=== PATIENT | male | born 1960 | race Hispanic/Latino ===

== ENCOUNTER 2017-12-08 06:34 | Day surgery (SDC) | payer MEDICAID ==
[~2017-12-08] VITALS: Ht 167.6 cm; Wt 78.9 kg
[~2017-12-08 06:34] MED LIST: ASPI-1005 PO; FURO40TA7 PO; LEVO50TA4 PO; METO50TA18 PO; SODIUM CHLORIDE 0.9% 1000ML 1,000 ML IV ONE
[2017-12-08 06:46] VITALS: BP 181/97
[2017-12-08 07:52] VITALS: BP 177/99
[2017-12-08] MEDS ORDERED: PROPOFOL 10 MG/ML 20ML VIAL IV ONE (10:35)
[2017-12-08] MEDS ORDERED: FENTANYL CITRATE PF 50 MCG/1 ML 2ML VIAL ONE (10:38)
[2017-12-08 10:49] VITALS: BP 149/85
== END 2017-12-08 11:35 | disposition home or self-care (01) ==
LOC: DAH 06:34
PROVIDERS: ATTEND Internal Medicine
DX: K29.50 Unspecified chronic gastritis without bleeding (principal); I10 Essential (primary) hypertension; E03.8 Other specified hypothyroidism; Z72.0 Tobacco use; Z79.899 Other long term (current) drug therapy
CPT/HCPCS: 43239; 88305; 88312; A4606; J2704; J3010; J7030

== ENCOUNTER 2018-05-27 20:32 | Observation (INO) | payer MEDICAID ==
[~2018-05-27] VITALS: Ht 175.3 cm; Wt 85.0 kg
[~2018-05-27 20:32] MED LIST changes: +AMLO5TAB7 PO; -ASPI-1005 PO; +CARV12.511 PO; -FURO40TA7 PO; +HYDR-4153 PO; +ISOS60TA4 PO; -LEVO50TA4 PO; -METO50TA18 PO; -SODIUM CHLORIDE 0.9% 1000ML 1,000 ML IV ONE
[2018-05-27] MEDS ORDERED: ASPIRIN 325 MG TABLET ONE (20:54)
[2018-05-27 20:58] LABS: BASOPHILS % (AUTO) 1.5 % (0.0-5.0); EOSINOPHILS % (AUTO) 2.6 % (0.0-8.0); HEMATOCRIT 31.7 % (42-54); LYMPHOCYTES % (AUTO) 20.5 % (21.0-51.0); MEAN CORPUSCULAR HEMOGLOBIN 34.3 pg (27.0-33.0); MEAN CORPUSCULAR HGB CONC 33.9 g/dL (32.0-36.0); MONOCYTES % (AUTO) 7.7 % (3.0-13.0); NEUTROPHILS % (AUTO) 67.7 % (40.0-77.0); PLATELET COUNT (AUTO) 133 K/uL (130-400); RED BLOOD CELL COUNT(AUTO) 3.14 MIL/uL (4.50-6.20); RED CELL DISTRIBUTION WIDTH 16.2 % (11.0-15.5); WHITE BLOOD COUNT (AUTO) 5.7 K/uL (4.8-10.8)
[2018-05-27 21:06] LABS: CREATININE 3.5 mg/dL (0.5-1.5); POTASSIUM 3.8 mmol/L (3.5-5.1)
[2018-05-27 21:10] LABS: ALBUMIN 2.7 g/dL (3.5-5.0); BILIRUBIN,TOTAL 0.4 mg/dL (0.2-1.0); TOTAL PROTEIN, SERUM 7.4 g/dL (6.0-8.3)
[2018-05-27 21:18] LABS: B-TYPE NATRIURETIC PEPTIDE > 5000 pg/mL (0-100)
[2018-05-27 21:51] LABS: APPEARANCE,URINE Cloudy (CLEAR); BILIRUBIN,URINE Negative (NEGATIVE); COLOR,URINE Yellow (YELLOW); GLUCOSE, URINE (UA) TRACE mg/dL (NEGATIVE); KETONES,URINE Negative (NEGATIVE); LEUKOCYTE ESTERASE ,URINE Large (NEGATIVE); NITRATE,URINE Negative (NEGATIVE); OCCULT BLOOD,URINE Small (NEGATIVE); PH,URINE 5.5 (5.0-8.0); PROTEIN,URINE 300 (NEGATIVE); UROBILINOGEN,URINE 0.2 mg/dL (0.2-1.0)
[2018-05-27 22:04] LABS: AMPHET/METH SCREEN,URINE NEGATIVE (NEGATIVE); BARBITURATE SCREEN, URINE NEGATIVE (NEGATIVE); BENZODIAZEPINES SCREEN,URINE NEGATIVE (NEGATIVE); CANNABINOID SCREEN,URINE NEGATIVE (NEGATIVE); COCAINE SCREEN,URINE NEGATIVE (NEGATIVE); OPIATE SCREEN,URINE NEGATIVE (NEGATIVE); PHENCYCLIDINE SCREEN,URINE NEGATIVE (NEGATIVE)
[2018-05-27 22:15] LABS: BACTERIA,URINE Rare /HPF (None Seen); RBC,URINE 0-1 /HPF (0-1); SQUAMOUS EPITHELIAL CELL,UR 0-2 /HPF (0-2); WBC,URINE 26-50 /HPF (0-1)
[2018-05-27 22:19] LABS: CREATINE KINASE, TOTAL 87 U/L (21-232); MYOGLOBIN 125 ng/mL (10-92); TROPONIN I < 0.04 ng/mL (0.00-0.06)
[2018-05-27] MEDS ORDERED: NITROGLYCERIN 1GM/1 INCH PACKET TD ONE (22:39)
[2018-05-27] MEDS ORDERED: PANTOPRAZOLE SODIUM 40 MG TABLET.DR PO ONE (22:51)
[2018-05-27] MEDS ORDERED: SODIUM CHLORIDE 0.9% 50 ML IV ONE (22:51)
[2018-05-27] MEDS ORDERED: CEFTRIAXONE SODIUM 1 GM ONE (22:51)
[2018-05-28 00:16] VITALS: BP 166/101
[2018-05-28] MEDS ORDERED: MORPHINE SULFATE 2 MG/ML 1ML SYG IVP PRN (02:00)
[2018-05-28] MEDS ORDERED: GUAIFENESIN-DM 200/20 MG 10 ML PO PRN (02:00)
[2018-05-28] MEDS ORDERED: ACETAMINOPHEN 325 MG TAB PO PRN ×2 (02:00)
[2018-05-28] MEDS: CEFTRIAXONE SODIUM 1 GM IVP SCH (02:00)
[2018-05-28] MEDS ORDERED: HYDRALAZINE HCL 25 MG TABLET PO PRN (02:00)
[2018-05-28 03:25] VITALS: BP 150/79
[2018-05-28 05:01] LABS: HEMATOCRIT 32.3 % (42-54); MEAN CORPUSCULAR HEMOGLOBIN 33.2 pg (27.0-33.0); MEAN CORPUSCULAR HGB CONC 32.9 g/dL (32.0-36.0); MEAN CORPUSCULAR VOLUME 100.9 fL (79-99); NUCLEATED RED BLOOD CELLS 0.2 % (0.0-0.19); PLATELET COUNT (AUTO) 114 K/uL (130-400); RED CELL DISTRIBUTION WIDTH 16.1 % (11.0-15.5); WHITE BLOOD COUNT (AUTO) 5.6 K/uL (4.8-10.8)
[2018-05-28 05:22] LABS: CARBON DIOXIDE 26 mmol/L (21-32); CHLORIDE 99 mmol/L (101-111); CREATINE KINASE, TOTAL 96 U/L (21-232); CREATININE 3.6 mg/dL (0.5-1.5); GLOMERULAR FILTR. RATE CALC 19 mL/min (>60); GLUCOSE,RANDOM 96 mg/dL (70-105); MYOGLOBIN 133 ng/mL (10-92); POTASSIUM 4.3 mmol/L (3.5-5.1); SODIUM SERUM 134 mmol/L (136-145); TROPONIN I < 0.04 ng/mL (0.00-0.06); UREA NITROGEN, BLOOD 41 mg/dL (7-18)
[2018-05-28] MEDS ORDERED: SODIUM CHLORIDE 0.9% 10 ML VIAL IVP PRN (06:15)
[2018-05-28 07:00] VITALS: BP 152/88
[2018-05-28] MEDS: ASPIRIN 81 MG EC TAB PO SCH (09:46)
[2018-05-28] MEDS: PANTOPRAZOLE SODIUM 40 MG TABLET.DR PO SCH (09:46)
[2018-05-28] MEDS: HEPARIN SODIUM 5000UNIT/ML 1ML VIAL SQ SCH ×2 (09:58→21:18)
[2018-05-28 10:38] LABS: CREATINE KINASE, TOTAL 114 U/L (21-232); MYOGLOBIN 138 ng/mL (10-92); TROPONIN I < 0.04 ng/mL (0.00-0.06)
[2018-05-28 11:00] VITALS: BP 165/91
[2018-05-28 16:00] VITALS: BP 159/81
[2018-05-28] MEDS ORDERED: LEVOFLOXACIN 500 MG/D5W 100 ML 100 ML IV SCH (16:45)
[2018-05-28] MEDS ORDERED: GABAPENTIN 100 MG CAPSULE ONE (18:00)
[2018-05-28] MEDS: OSELTAMIVIR PHOSPHATE 75 MG CAP PO SCH (18:03)
[2018-05-28] MEDS: IPRATROPIUM/ALBUTEROL SULFATE 3 ML SOLUTION IH SCH ×2 (18:28→23:05)
[2018-05-28 20:00] VITALS: BP 180/94
[2018-05-28] MEDS: CARVEDILOL 12.5 MG TABLET PO SCH (21:08)
[2018-05-28] MEDS: HYDRALAZINE HCL 25 MG TABLET PO SCH (21:08)
[2018-05-28] MEDS: GABAPENTIN 100 MG CAPSULE PO SCH (21:09)
[2018-05-29] VITALS: BP 145/64
[2018-05-29] MEDS: CEFTRIAXONE SODIUM 1 GM IVP SCH (01:52)
[2018-05-29 04:00] VITALS: BP 160/76
[2018-05-29 04:34] LABS: HEMATOCRIT 30.2 % (42-54); MEAN CORPUSCULAR HEMOGLOBIN 34.3 pg (27.0-33.0); MEAN CORPUSCULAR HGB CONC 33.7 g/dL (32.0-36.0); PLATELET COUNT (AUTO) 113 K/uL (130-400); RED BLOOD CELL COUNT(AUTO) 2.96 MIL/uL (4.50-6.20); RED CELL DISTRIBUTION WIDTH 16.5 % (11.0-15.5); WHITE BLOOD COUNT (AUTO) 4.4 K/uL (4.8-10.8)
[2018-05-29 04:51] LABS: HEMOGLOBIN A1C 6.2 % (4.0-6.0)
[2018-05-29 05:02] LABS: ALBUMIN 2.6 g/dL (3.5-5.0); BILIRUBIN,DIRECT 0.1 mg/dL (0.0-0.3); BILIRUBIN,TOTAL 0.3 mg/dL (0.2-1.0); CREATININE 4.1 mg/dL (0.5-1.5); MAGNESIUM 2.2 mg/dL (1.80-2.40); PHOSPHORUS 5.6 mg/dL (2.5-4.9); POTASSIUM 4.5 mmol/L (3.5-5.1); THYROID STIMULATING HORMONE 4.82 uIU/mL (0.36-3.74); TOTAL PROTEIN, SERUM 7.1 g/dL (6.0-8.3); URIC ACID 6.4 mg/dL (2.6-7.2)
[2018-05-29] MEDS: IPRATROPIUM/ALBUTEROL SULFATE 3 ML SOLUTION IH SCH ×2 (05:58→10:56)
[2018-05-29 07:00] VITALS: BP 156/78
[2018-05-29] MEDS ORDERED: SODIUM CHLORIDE 0.9% 1000ML 1,000 ML IV PRN (07:30)
[2018-05-29] MEDS ORDERED: ALBUMIN (HUMAN) 25% 100 ML IV PRN (07:30)
[2018-05-29] MEDS ORDERED: 0.9% SODIUM CHLORIDE 250 ML IV BAG IV PRN (07:30)
[2018-05-29] MEDS ORDERED: HEPARIN SODIUM 5000UNIT/ML 1ML VIAL IJ PRN (07:30)
[2018-05-29] MEDS ORDERED: ISOSORBIDE MONO 60 MG TAB.SR PO SCH (09:00)
[2018-05-29] MEDS: HEPARIN SODIUM 5000UNIT/ML 1ML VIAL SQ SCH (09:00)
[2018-05-29] MEDS ORDERED: AMLODIPINE BESYLATE 5 MG TAB PO SCH (09:00)
[2018-05-29] MEDS: HYDRALAZINE HCL 25 MG TABLET PO SCH ×2 (09:00→14:33)
[2018-05-29 11:00] VITALS: BP 162/86
[2018-05-29] MEDS: OSELTAMIVIR PHOSPHATE 75 MG CAP PO SCH (14:33)
[2018-05-29] MEDS: ASPIRIN 81 MG EC TAB PO SCH (14:33)
[2018-05-29] MEDS: GABAPENTIN 100 MG CAPSULE PO SCH (14:33)
[2018-05-29 14:34] VITALS: BP 160/98
[2018-05-29] MEDS: PANTOPRAZOLE SODIUM 40 MG TABLET.DR PO SCH (14:34)
[2018-05-29] MEDS: CARVEDILOL 12.5 MG TABLET PO SCH (14:34)
[2018-05-29 16:13] LABS: APPEARANCE BODY FLUID CLOUDY (CLEAR); COLOR,BODY FLUID DARK YELLOW (LT YELLOW); SPECIMENTYPE,BODY FLUID PLEURAL; TOTAL VOLUME,BODY FLUID 1810 mL
[2018-05-29 16:14] LABS: BODY FLUID RBC 2252 /cu. mm.; BODY FLUID WBC 77 /cu. mm.
[2018-05-29 16:46] LABS: BF LYMPHOCYTE 32 %; BF MESOTHELIAL 2 %; BF MONOCYTE 23 %
== END 2018-05-29 17:45 | disposition home or self-care (01) ==
LOC: EDH 20:32 → EDHIP 20:33 → UNDOADMOB 22:49 → EDHIP 23:20 → 3AH 23:20
PROVIDERS: ADMIT Internal Medicine Pulmonary Disease; ATTEND Internal Medicine Pulmonary Disease
DX: J90 Pleural effusion, not elsewhere classified (principal); I13.2 Hypertensive heart and chronic kidney disease with heart failure and with stage 5 chronic kidney disease, or end stage renal disease; N18.6 End stage renal disease; I50.9 Heart failure, unspecified; E78.5 Hyperlipidemia, unspecified; I25.10 Atherosclerotic heart disease of native coronary artery without angina pectoris; I25.5 Ischemic cardiomyopathy; E11.22 Type 2 diabetes mellitus with diabetic chronic kidney disease; E11.51 Type 2 diabetes mellitus with diabetic peripheral angiopathy without gangrene; J44.9 Chronic obstructive pulmonary disease, unspecified; Z87.891 Personal history of nicotine dependence; Z91.19 Patient's noncompliance with other medical treatment and regimen; B34.9 Viral infection, unspecified; D64.9 Anemia, unspecified; Z91.11 Patient's noncompliance with dietary regimen; Z99.2 Dependence on renal dialysis
CPT/HCPCS: 36415 ×3; 71045 ×2; 71250; 80048 ×2; 80053; 80076; 80305; 81001; 82550 ×3; 82945; 83036; 83615; 83735 ×2; 83874 ×3; 83880; 83986; 84100; 84157; 84443; 84484 ×3; 84550; 85025; 85027 ×2; 87040 ×2; 87071; 87088; 87103; 87116; 87205; 87206 ×2; 87804 ×2; 88108; 88305; 89051; 93005; 93970; 94640 ×4; 94664; 96365; 96372; 96375; 99291; A4218; A4510; G0378 ×45; J0696 ×2; J1644 ×3; J1956

== ENCOUNTER → 2018-06-01 | Outpatient (CLI) | payer MEDICAID | END | disposition home or self-care (01) | LOC: RAH 08:32 | PROVIDERS: ATTEND Internal Medicine Cardiovascular Disease | DX: J90 Pleural effusion, not elsewhere classified (principal); J98.11 Atelectasis; I25.10 Atherosclerotic heart disease of native coronary artery without angina pectoris; M47.895 Other spondylosis, thoracolumbar region; K76.0 Fatty (change of) liver, not elsewhere classified; I13.2 Hypertensive heart and chronic kidney disease with heart failure and with stage 5 chronic kidney disease, or end stage renal disease; E11.22 Type 2 diabetes mellitus with diabetic chronic kidney disease; N18.5 Chronic kidney disease, stage 5; I50.42 Chronic combined systolic (congestive) and diastolic (congestive) heart failure; E11.51 Type 2 diabetes mellitus with diabetic peripheral angiopathy without gangrene; E78.5 Hyperlipidemia, unspecified; E03.9 Hypothyroidism, unspecified; J44.9 Chronic obstructive pulmonary disease, unspecified; Z87.891 Personal history of nicotine dependence | CPT/HCPCS: 74150 ==

== ENCOUNTER 2018-09-15 06:59 | Inpatient (IN) | payer MEDICARE, MEDICAID | END 2018-09-22 19:05 | LOC: EDH 06:59 → 2DH 09-16 00:27 → 2CH 09-20 08:12 → EDHIP 12:13 | DX: A41.9 Sepsis, unspecified organism (principal); J18.9 Pneumonia, unspecified organism; J96.01 Acute respiratory failure with hypoxia; N18.6 End stage renal disease; J86.9 Pyothorax without fistula; I12.0 Hypertensive chronic kidney disease with stage 5 chronic kidney disease or end stage renal disease; E11.22 Type 2 diabetes mellitus with diabetic chronic kidney disease; Z87.891 Personal history of nicotine dependence ==

== ENCOUNTER 2018-10-19 23:32 | Inpatient (IN) | payer MEDICARE | END 2018-10-20 19:20 | disposition short-term general hospital (02) | LOC: EDH 23:32 → EDHIP 10-20 03:52 ==

== ENCOUNTER 2018-11-10 02:10 | Inpatient (IN) | payer MEDICARE ==
[~2018-11-10] VITALS: Ht 167.6 cm; Wt 88.6 kg
[~2018-11-10 02:10] MED LIST changes: -AMLO5TAB7 PO; +ASPI-1005 PO; -CARV12.511 PO; +CLOP75TA14 PO; +FLUO-126 PO; +FOLI1TAB85 PO; +Folic Acid/Vitamin B Comp W-C PO; -ISOS60TA4 PO; +LEVO50TA11 PO; +METO50TA18 PO; +MIRT15TA PO; +OMEP20CA10 PO
[2018-11-10] MEDS ORDERED: DIAZEPAM 5 MG TABLET ONE (02:49)
[2018-11-10 03:13] LABS: BASOPHILS % (AUTO) 1.6 % (0.0-5.0); EOSINOPHILS % (AUTO) 0.7 % (0.0-8.0); LYMPHOCYTES % (AUTO) 9.9 % (21.0-51.0); MEAN CORPUSCULAR HEMOGLOBIN 32.2 pg (27.0-33.0); MEAN CORPUSCULAR HGB CONC 32.4 g/dL (32.0-36.0); MEAN CORPUSCULAR VOLUME 99.5 fL (79-99); MONOCYTES % (AUTO) 6.1 % (3.0-13.0); NEUTROPHILS % (AUTO) 81.7 % (40.0-77.0); NUCLEATED RED BLOOD CELLS 0.2 % (0.0-0.19); PLATELET COUNT (AUTO) 142 K/uL (130-400); RED BLOOD CELL COUNT(AUTO) 2.62 MIL/uL (4.50-6.20); WHITE BLOOD COUNT (AUTO) 6.6 K/uL (4.8-10.8)
[2018-11-10 03:22] LABS: CREATININE 5.5 mg/dL (0.5-1.5); POTASSIUM 3.7 mmol/L (3.5-5.1)
[2018-11-10 03:26] LABS: ALBUMIN 2.2 g/dL (3.5-5.0); BILIRUBIN,TOTAL 0.4 mg/dL (0.2-1.0); TOTAL PROTEIN, SERUM 8.4 g/dL (6.0-8.3)
[2018-11-10 03:41] LABS: B-TYPE NATRIURETIC PEPTIDE > 5000 pg/mL (0-100)
[2018-11-10 04:55] LABS: BILIRUBIN,URINE Negative (NEGATIVE); COLOR,URINE Dark Yellow (YELLOW); GLUCOSE, URINE (UA) TRACE mg/dL (NEGATIVE); KETONES,URINE Trace mg/dL (NEGATIVE); LEUKOCYTE ESTERASE ,URINE Negative (NEGATIVE); NITRATE,URINE Negative (NEGATIVE); OCCULT BLOOD,URINE Negative (NEGATIVE); PROTEIN,URINE 300 (NEGATIVE)
[2018-11-10 05:01] LABS: APPEARANCE,URINE SLIGHTLY CLOUDY (CLEAR)
[2018-11-10] MEDS ORDERED: ASPIRIN 325 MG TABLET ONE (05:12)
[2018-11-10 05:21] LABS: AMORPHOUS SEDIMENT,UR Moderate /LPF (None Seen); BACTERIA,URINE Moderate /HPF (None Seen); RBC,URINE 0-1 /HPF (0-1)
[2018-11-10] MEDS: NITROGLYCERIN 1GM/1 INCH PACKET TD SCH ×3 (05:25→21:30)
[2018-11-10] MEDS ORDERED: ACETAMINOPHEN 325 MG TAB PO PRN ×3 (05:30→11:30)
[2018-11-10] MEDS ORDERED: HYDRALAZINE HCL 20 MG/ML VIAL IV PRN (05:30)
[2018-11-10] MEDS ORDERED: MORPHINE SULFATE 4 MG/1ML SYG IV PRN (05:30)
[2018-11-10] MEDS ORDERED: NITROGLYCERIN 1GM/1 INCH PACKET TD ONE (05:39)
[2018-11-10 06:05] VITALS: BP 99/54
--- NOTE | 2018-11-10 06:30 | NUR ---
PATIENT UPDATE 58 YR OLD MALE ADMITTED FOR COMPLAINTS OF NECK AND BACK. DENIES NECK PAIN AT THIS TIME, BNP GREATER THAN 5000 WITH TROPONIN OF ELEVATED. NO SHORTNESS OF BREATH, DENIES ANY CHEST PAIN. PT WITH ESRD ON HD DUE TODAY. Kelli LUBIN MADE AWARE OF THE NEW ADMIT, THE NEED TO CONSULT THE HD MD FOR HD TO BE INITIATED. PENDING CARDIOLOGY C/S FOR ACS. PT ORIENTED X 3 BUT RESPONDS TO MOST QUESTIONS INAPPROPRIATELY MOST OF THE TIME. LEFT SIDE WEAKNESS, S/P RT CVA. INSTRUCTED TO CALL SHOULD HE NEED TO GO TO THE TOILET, PT JUST CLOSES THE DOOR AND GOES AROUND THE ROOM PER SELF, FALL PRECAUTION. STATED THAT HIS PROBLEM NOW IS THE TWITCHING ON THE LEFT SIDE, USED TO BE ON THE RT SIDE. ON TELE MONITORING ,RUNNING NSR IN THE 70'S, NO ECTOPIES NOTED. REPORT GIVEN TO DAGOBERTO SKINNER WHO WILL ASSUME CARE OF PATIENT.
[2018-11-10] MEDS: LEVOTHYROXINE 50 MCG TABLET PO SCH (07:30)
[2018-11-10 08:00] VITALS: BP 115/70
[2018-11-10] MEDS ORDERED: HYDRALAZINE HCL 25 MG TABLET PO SCH (09:00)
[2018-11-10] MEDS ORDERED: ENOXAPARIN SODIUM 30 MG/0.3 ML SQ SCH (09:00)
[2018-11-10] MEDS: ASPIRIN 325 MG TABLET PO SCH (09:00)
[2018-11-10] MEDS: FAMOTIDINE/PF 20 MG/2 ML VIAL IV SCH (09:00)
[2018-11-10] MEDS ORDERED: METOPROLOL TARTRATE 50 MG TAB PO SCH (09:00)
[2018-11-10] MEDS: FLUOXETINE HCL 20 MG CAPSULE PO SCH (09:00)
[2018-11-10] MEDS: CLOPIDOGREL BISULFATE 75 MG TAB PO SCH (09:00)
[2018-11-10] MEDS ORDERED: FUROSEMIDE 10 MG/ML 2ML VIAL IV SCH (09:00)
[2018-11-10] MEDS ORDERED: COMPOUND IV MISC 1 EACH IVSOLN MISC PRN (09:45)
[2018-11-10] MEDS ORDERED: IRON SUCROSE COMPLEX 100 MG in SODIUM CHLORIDE 0.9% 50 ML IV SCH (10:00)
[2018-11-10] MEDS ORDERED: SODIUM CHLORIDE 0.9% 1000ML 1,000 ML IV PRN (11:30)
[2018-11-10] MEDS ORDERED: LIDOCAINE HCL-MPF 1% 2ML VIAL IJ PRN (11:30)
[2018-11-10] MEDS ORDERED: 0.9% SODIUM CHLORIDE 1000 ML IV BAG IV PRN (11:30)
[2018-11-10 12:00] VITALS: BP 117/75
[2018-11-10 16:00] VITALS: BP 93/61
[2018-11-10] MEDS: ALBUMIN (HUMAN) 25% 100 ML IV SCH (18:26)
[2018-11-10 20:00] VITALS: BP 133/66
[2018-11-10] MEDS ORDERED: MIRTAZAPINE 15 MG TABLET PO SCH (21:00)
[2018-11-10] MEDS: EPOETIN ALFA 10,000 UNIT/ML VIAL SQ SCH (21:55)
[2018-11-10 23:38] VITALS: BP 95/53
[2018-11-11 03:23] VITALS: BP 118/59
[2018-11-11] MEDS: NITROGLYCERIN 1GM/1 INCH PACKET TD SCH ×2 (03:38→13:30)
--- NOTE | 2018-11-11 06:00 | NUR ---
PATIENT UPDATE PT SLEPT FAIRLY OVERNIGHT AFTER HE HAD THE HD TX , 1.9 LITERS OF FLUIDS PULLED OUT, HAD A HYPOTENSIVE EPISODE WHERE THE BP DROPPED TO 85/50 MMHG, 2 ALBUMIN WAS GIVEN. NTG OINTMENT NOT GIVEN, REFUSED BY PT. NO CHEST PAIN, NO SHORTNESS OF BREATH AFTER MN. WOKE UP EARLY LOOKING FOR BREAKFAST. STATED THAT HE'S LOOKING FORWARD TO GETTING DISCHARGED TODAY. LATEST BP AT 118/59 MMHG.
[2018-11-11 06:05] LABS: BASOPHILS % (AUTO) 1.2 % (0.0-5.0); EOSINOPHILS % (AUTO) 1.4 % (0.0-8.0); HEMATOCRIT 24.9 % (42-54); LYMPHOCYTES % (AUTO) 15.3 % (21.0-51.0); MEAN CORPUSCULAR HEMOGLOBIN 33.3 pg (27.0-33.0); MEAN CORPUSCULAR HGB CONC 33.8 g/dL (32.0-36.0); MEAN CORPUSCULAR VOLUME 98.6 fL (79-99); MONOCYTES % (AUTO) 7.4 % (3.0-13.0); NEUTROPHILS % (AUTO) 74.7 % (40.0-77.0); NUCLEATED RED BLOOD CELLS 0.5 % (0.0-0.19); PLATELET COUNT (AUTO) 131 K/uL (130-400); RED BLOOD CELL COUNT(AUTO) 2.52 MIL/uL (4.50-6.20); RED CELL DISTRIBUTION WIDTH 18.3 % (11.0-15.5); WHITE BLOOD COUNT (AUTO) 4.6 K/uL (4.8-10.8)
[2018-11-11 06:16] LABS: ALBUMIN 2.6 g/dL (3.5-5.0); BILIRUBIN,TOTAL 0.4 mg/dL (0.2-1.0); CREATININE 4.9 mg/dL (0.5-1.5); POTASSIUM 3.7 mmol/L (3.5-5.1); TOTAL PROTEIN, SERUM 8.2 g/dL (6.0-8.3)
[2018-11-11] MEDS: LEVOTHYROXINE 50 MCG TABLET PO SCH (06:28)
--- NOTE | 2018-11-11 08:10 | NUR ---
cm note pt resides at home alone uses a walking stick for ambulation, adls per self, attends [facility]. provides own transport has friend and family that assists as needed. instructed on importance of obtaining prescribed meds ordered at dc. pt verbalizes understanding. states no dc needs. Addendum: 11/11/18 at 0814 by MARKIE PEOPLES CM Amended: Links added.
[2018-11-11 08:30] VITALS: BP 114/57
[2018-11-11] MEDS ORDERED: ENOXAPARIN SODIUM 30 MG/0.3 ML SQ SCH (09:00)
[2018-11-11] MEDS: EPOETIN ALFA 10,000 UNIT/ML VIAL SQ SCH (09:25)
[2018-11-11] MEDS: CLOPIDOGREL BISULFATE 75 MG TAB PO SCH (09:26)
[2018-11-11] MEDS: FAMOTIDINE/PF 20 MG/2 ML VIAL IV SCH (09:26)
[2018-11-11] MEDS: FLUOXETINE HCL 20 MG CAPSULE PO SCH (09:26)
[2018-11-11] MEDS: ASPIRIN 325 MG TABLET PO SCH (09:26)
[2018-11-11 11:00] VITALS: BP 109/68
[2018-11-11] MEDS ORDERED: CLOP75TA14 PO (14:09)
[2018-11-11] MEDS ORDERED: LEVO50TA11 PO (15:13)
[2018-11-11] MEDS ORDERED: FLUO40CA49 PO (15:13)
[2018-11-11] MEDS ORDERED: FOLI400T9 PO (15:13)
[2018-11-11] MEDS ORDERED: MIRT15TA PO (15:13)
[2018-11-11] MEDS ORDERED: FOLI1TAB85 PO (15:13)
[2018-11-11] MEDS ORDERED: OMEP20CA10 PO (15:13)
[2018-11-11] MEDS ORDERED: METO50TA18 PO (15:13)
[2018-11-11] MEDS ORDERED: HYDR-4153 PO (15:13)
== END 2018-11-11 16:25 | disposition home or self-care (01) | DRG 551 ==
LOC: EDH 02:10 → EDHIP 05:17 → 4CH 05:45
PROVIDERS: ADMIT Internal Medicine; ATTEND Internal Medicine
PROC: 5A1D70Z Performance of Urinary Filtration, Intermittent, Less than 6 Hours Per Day (ICD-10-PCS; principal; 2018-11-10)
DX: M54.2 Cervicalgia (principal); N18.6 End stage renal disease; I13.2 Hypertensive heart and chronic kidney disease with heart failure and with stage 5 chronic kidney disease, or end stage renal disease; I42.9 Cardiomyopathy, unspecified; I24.9 Acute ischemic heart disease, unspecified; R68.84 Jaw pain; I50.9 Heart failure, unspecified; I25.10 Atherosclerotic heart disease of native coronary artery without angina pectoris; E11.22 Type 2 diabetes mellitus with diabetic chronic kidney disease; Z82.0 Family history of epilepsy and other diseases of the nervous system; Z83.3 Family history of diabetes mellitus; Z82.49 Family history of ischemic heart disease and other diseases of the circulatory system; Z91.19 Patient's noncompliance with other medical treatment and regimen; I95.9 Hypotension, unspecified; Z99.2 Dependence on renal dialysis; Z87.01 Personal history of pneumonia (recurrent)
CPT/HCPCS: 36415; 71045; 80053; 81001; 82550; 83880; 84484; 85025; 90935; 93005; G0378; J0885; J1650; J1756; J3490; P9046